=== PATIENT | male | born 1980 | race African-American/Black ===

== ENCOUNTER 2016-07-05 02:01 | Emergency (ER) | payer SELFPAY ==
--- NOTE | ~2016-07-05 | CT71 ---
[facility] A Service [facility] RADIOLOGY TEXT RESULTS PATIENT: ILIANA UNGER LOCATION: SED : 82 UNIT #: [id number] AGE: [address]: Raza Osorio MD SEX: M ORDER DR: [id number] [place] [id number] E MR#: [id number] Acc #: [id number] NAME: ILIANA UNGER : 1980 SEX: M STUDY DATE/TIME: 07/05/2016 2:49 UNIT: SED ROOM: STUDY DESCRIPTION: CT Head Wo Contrast Attending Physician: Raza Osorio M.D. Ordering Physician: Raza Osorio M.D. Primary Care Physician: Primary Care Physician No MEDICAL IMAGING REPORT This report is preliminary unless electronic signature is present. EXAM CT head INDICATION Left-sided weakness. Chest pain. TECHNIQUE CT head without contrast. This CT exam was performed with one or more of the following radiation dose reduction techniques: automatic exposure control, adjustment of mA and/or kV according to patient size, and iterative reconstruction. COMPARISON CT head 12/03/2015. FINDINGS Axial noncontrast images were obtained from the skull base to the vertex. Ventricular size and configuration are normal. There is no evidence of acute infarct or hemorrhage. There are no extraaxial fluid collections. No mass lesion or mass effect is seen. There are no skull fractures. IMPRESSION Normal noncontrast head CT. Dictated by... Manuel Sullivan M.D. THIS IS AN ELECTRONICALLY VERIFIED REPORT Manuel Sullivan M.D. at 07/05/2016 4:38 AM RPC/steph [facility] A Service [facility] RADIOLOGY TEXT RESULTS PATIENT: ILIANA UNGER LOCATION: SED : [birth year] UNIT #: [id number] AGE: [address]: Raza Osorio MD SEX: M ORDER DR: TD: 07/05/2016 03:43 JOB #: [id number] MEDICAL IMAGING REPORT Page 1 of 1
--- NOTE | ~2016-07-05 | EKG ---
PATIENT: ILIANA UNGER UNIT #: [id number] Ventricular Rate: 83 BPM Atrial Rate: 83 BPM P-R Interval: 130 ms QRS Duration: 140 ms Q-T Interval: 414 ms QTC Calculation(Bezet): 486 ms P Hawks: 48 degrees Calculated R Hawks: -13 degrees Calculated T Hawks: 23 degrees Diagnosis Line: Normal sinus rhythm Diagnosis Line: Right bundle branch block with repolarization Diagnosis Line: abnormality Diagnosis Line: Abnormal ECG Diagnosis Line: When compared with ECG of 15-FEB-2016 02:43, Diagnosis Line: No significant change was found Diagnosis Line: Confirmed by SASMON FLOREZ MD ([id number]) on 07/05/2016 Diagnosis Line: 5:52:11 PM INTERPRETING MD: VIKIK CABAN
--- NOTE | ~2016-07-05 | CR63 ---
[facility]. [facility] A Service of [facility] RADIOLOGY TEXT RESULTS PATIENT: ILIANA UNGER LOCATION: SED : [birth year] UNIT #: [id number] AGE: [address]: Raza Osorio MD SEX: M ORDER DR: [id number] [place] [id number] E MR#: [id number] Acc #: [id number] NAME: ILIANA UNGER : 1980 SEX: M STUDY DATE/TIME: 07/05/2016 2:39 UNIT: SED ROOM: STUDY DESCRIPTION: CR Chest 2 View Attending Physician: Raza Osorio M.D. Ordering Physician: Raza Oosrio M.D. Primary Care Physician: Primary Care Physician No MEDICAL IMAGING REPORT This report is preliminary unless electronic signature is present. EXAM Two-view chest INDICATION Chest pain for 2 hours. Left arm pain. FINDINGS PA and lateral views of the chest compared to 02/15/2016. Heart and mediastinal contour is within normal limits. There is a loop recorder over the left chest wall. The lungs are clear. IMPRESSION No acute findings. Dictated by... Manuel Sullivan M.D. THIS IS AN ELECTRONICALLY VERIFIED REPORT Manuel Sullivan M.D. at 07/05/2016 4:38 AM JENNIFER/steph TD: 07/05/2016 03:46 JOB #: [id number] MEDICAL IMAGING REPORT Page 1 of 1
[~2016-07-05 02:01] MED LIST: ALBUTEROL17 GM INH
[2016-07-05 02:41] LABS: PROTHROMBIN TIME (PATIENT) 11.8 SECONDS (9.5-12.4)
[2016-07-05 02:50] LABS: PARTIAL THROMBOPLASTIN TIME 30.9 SECONDS (25.6-38.1)
[2016-07-05 02:53] LABS: ALBUMIN SERUM 4.5 g/dL (3.5-5.0); BILIRUBIN, DIRECT 0.3 mg/dL (0.0-0.2); BILIRUBIN,INDIRECT 1.1 mg/dL (0.0-0.9); BILIRUBIN,TOTAL 1.4 mg/dL (0.2-2.0); BUN/CREATININE RATIO 8.57; CALCIUM SERUM 8.6 mg/dL (8.4-10.2); CREATININE SERUM 0.7 mg/dL (0.6-1.4); GLOM FILT RATE Estimated 142.8 mL/min (>60); POTASSIUM 3.5 mmol/L (3.5-5.1); PROTEIN TOTAL SERUM 7.6 g/dL (6.0-8.3)
[2016-07-05 02:54] LABS: BASOPHIL# 0.1 X10e3 (0-0.3); BASOPHIL% 1.6 % (0-2.5); EOSINOPHIL% 0.6 % (0.0-7.0); HEMATOCRIT 40.1 % (38.0-50.0); HEMOGLOBIN 13.2 gm/dL (13.0-16.0); LYMPHOCYTE# 3.2 X10e3 (1.0-3.5); LYMPHOCYTE% 39.8 % (17.0-45.0); MEAN CELL VOLUME 96.3 FL (83-96); MEAN CORPUSCULAR HEMOGLOBIN 31.8 PG (28-34); MEAN CORPUSCULAR HGB CONC 33.1 g/dL (30-36); MEAN PLATELET VOLUME 8.5 FL (6.5-11.5); MONOCYTE# 0.9 X10e3 (0-1.0); MONOCYTE% 11.9 % (3.0-12.0); NEUTROPHIL# 3.7 X10e3 (1.5-7.1); NEUTROPHIL% 46.1 % (40-75); PLATELET COUNT 243 X10e3 (140-420); RED BLOOD COUNT 4.16 X10e (3.90-5.60); RED CELL DISTRIBUTION WIDTH 13.8 % (11.0-15.5); WHITE BLOOD COUNT 7.9 X10e3 (4.0-10.5)
[2016-07-05 02:55] LABS: DIFF IND NO
[2016-07-05 02:58] LABS: POC - CKMB 3.6 ng/mL (0.0-7.9)
[2016-07-05 02:59] LABS: POC - TROPONIN <0.05 ng/mL (<=0.05)
== END 2016-07-05 07:17 | disposition home or self-care (01) ==
LOC: SED 02:01
PROVIDERS: Emergency Medicine
DX: R07.9 Chest pain, unspecified (principal); H57.02 Anisocoria; F10.20 Alcohol dependence, uncomplicated; J45.909 Unspecified asthma, uncomplicated; Z98.890 Other specified postprocedural states; Z79.899 Other long term (current) drug therapy
CPT/HCPCS: 36415; 70450; 71020; 80048; 80076; 82553; 84484; 85025; 85610; 85730; 99284; G0480